=== PATIENT | male | born 1960 | race Caucasian/White ===

== ENCOUNTER 2018-05-03 07:21 | Day surgery (SDC) | payer BC ==
[2018-05-03] MEDS: IOHEXOL 300MG/ML 30 ML BTL INJ ×2
[~2018-05-03 07:21] MED LIST: CIPROFLOXACIN 400MG/D5W 200 ML IVPB; DEXAMETHASONE 4 MG/ML 1 ML INJ; ONDANSETRON 4 MG INJ; ROCURONIUM 50 MG INJ
[2018-05-03 08:11] LABS: ADD MAN DIFF? NO
[2018-05-03 08:15] LABS: WHITE BLOOD COUNT 2.4 10^3/ul (4.8-10.8)
[2018-05-03 08:15] LABS: ABNORMAL IP MESSAGE 1; BASOPHILS % 0.8 % (0.0-2.0); EOSINOPHILS # 0.1 10^3/ul (0.0-0.5); EOSINOPHILS % 2.5 % (0.0-7.0); HEMATOCRIT 39.5 % (42.0-52.0); LYMPHOCYTES # 0.7 10^3/ul (0.8-2.9); LYMPHOCYTES % 28.4 % (15.0-51.0); MEAN CORPUSCULAR HEMOGLOBIN 32.5 pg (29.0-33.0); MEAN CORPUSCULAR HGB CONC 35.4 g/dl (32.0-37.0); MEAN CORPUSCULAR VOLUME 91.6 fl (82.0-101.0); MEAN PLATELET VOLUME 11.7 fl (7.4-10.4); MONOCYTE # 0.3 10^3/ul (0.3-0.9); MONOCYTES % 14.4 % (0.0-11.0); NEUTROPHIL # 1.3 10^3/ul (1.6-7.5); NEUTROPHILS % 53.5 % (39.0-77.0); PLATELET COUNT 61 10^3/UL (140-415); POSITIVE DIFF @See below; RED BLOOD COUNT 4.31 10^6/ul (4.70-6.10); RED CELL DISTRIBUTION WIDTH 16.6 % (11.5-14.5)
[2018-05-03] MEDS ORDERED: IOHEXOL 300MG/ML 30 ML BTL (08:19)
[2018-05-03 08:30] LABS: HOLD TRANSMISSIONS 1
[2018-05-03] MEDS ORDERED: FENTAnyl 50 MCG/ML VIAL (09:07)
[2018-05-03] MEDS ORDERED: ROCURONIUM 50 MG INJ (09:07)
[2018-05-03] MEDS ORDERED: PROPOFOL 20 ML (09:07)
[2018-05-03] MEDS ORDERED: ALBUTEROL 0.083% (NEB) 2.5 MG/3 ML AMP HHN (09:30)
[2018-05-03] MEDS ORDERED: OXYCODONE/ACETAMINOPHEN (5/325) TAB PO ×2 (09:30)
[2018-05-03] MEDS ORDERED: KETOROLAC 30 MG INJ IV (09:30)
[2018-05-03] MEDS ORDERED: DIPHENHYDRAMINE 50 MG INJ IV (09:30)
[2018-05-03] MEDS ORDERED: LABETALOL HCL 20MG INJ IV (09:30)
[2018-05-03] MEDS ORDERED: EPHEDrine SULFATE 50 MG/5 ML SYG IV (09:30)
[2018-05-03] MEDS ORDERED: HYDROmorphONE 1 MG/5 ML IV SYRINGE IV ×2 (09:30)
[2018-05-03] MEDS ORDERED: MIDAZOLAM 1 MG/ML 2 ML INJ IV (09:30)
[2018-05-03] MEDS ORDERED: MEPERIDINE 25 MG INJ IV (09:30)
[2018-05-03] MEDS ORDERED: METOCLOPRAMIDE 10 MG INJ IV (09:30)
[2018-05-03] MEDS ORDERED: FENTAnyl 50 MCG/ML VIAL IV ×2 (09:30)
[2018-05-03] MEDS ORDERED: ONDANSETRON 4 MG INJ IV (09:30)
[2018-05-03] MEDS ORDERED: SUGAMMADEX SODIUM 200 MG/2 ML VIAL IV (10:58)
[2018-05-03] MEDS ORDERED: CIPROFLOXACIN 400MG/D5W 200 ML (11:11)
[2018-05-03] MEDS: hydrALAzine 20 MG INJ IV (11:21)
[2018-05-03] MEDS: HYDROmorphONE 1 MG/5 ML IV SYRINGE IV ×2 (11:34→12:26)
[2018-05-03] MEDS: FENTAnyl 50 MCG/ML VIAL IV (11:55)
== END 2018-05-03 14:50 | disposition home or self-care (01) ==
LOC: SDS 07:21
DX: Z46.6 Encounter for fitting and adjustment of urinary device (principal); I10 Essential (primary) hypertension
CPT/HCPCS: 52353; 85025